=== PATIENT | female | born 1985 | race African-American/Black ===

== ENCOUNTER 2019-03-24 22:04 | Emergency (ER) | payer BC, OTHER ==
[~2019-03-24] VITALS: Ht 152.4 cm; Wt 40.8 kg
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
--- NOTE | 2019-03-24 22:38 | NUR ---
PT STATED THAT HER TETANUS IS UP TO DATE.
--- NOTE | 2019-03-24 22:54 | NUR ---
SUTURE SET UP IS AT THE BEDSIDE FOR M DEGRASSE, AGACNP
--- NOTE | 2019-03-24 22:58 | NUR ---
Ron CABRERA FAMILY SERVICES ASSISTANT IS AT THE BEDSIDE FOR SUTURING
--- NOTE | 2019-03-24 23:10 | NUR ---
NON ADHERENT DRSG AND KERLEX APPLIED TO WOUND BY RUBIN MARTINES. Patient discharged to home in stable condition. Written and verbal after care instructions given. Patient verbalizes understanding of instruction. PT AMBULATED OUT WITH A STEADY GAIT. PT WAS INSTRUCTED TO WATCH FOR SIGNS OF INFECTION AND HAVE A WOUND CHECK IN 2 DAYS. PT TO HAVE SUTURES OUT IN 7-10 DAYS.
[2019-03-24 23:13] VITALS: BP 106/74
== END 2019-03-24 23:14 | disposition home or self-care (01) ==
LOC: ER 22:18
DX: S61.412A Laceration without foreign body of left hand, initial encounter (principal); F10.10 Alcohol abuse, uncomplicated; Y90.9 Presence of alcohol in blood, level not specified; W26.8XXA Contact with other sharp object(s), not elsewhere classified, initial encounter; Y93.89 Activity, other specified; Y92.89 Other specified places as the place of occurrence of the external cause; Y99.8 Other external cause status
CPT/HCPCS: 12001; 99283; A6402